=== PATIENT | male | born 1955 | race Two or more races ===

== ENCOUNTER 2018-10-25 05:45 | Inpatient (IN) | payer OTHER, MEDICAID ==
--- NOTE | 2018-10-24 17:24 | GHP ---
[f rep st] PREOP HISTORY AND PHYSICAL ADMISSION DIAGNOSIS: Adenocarcinoma of the prostate. HISTORY OF PRESENT ILLNESS: This is a 63-year-old gentleman whose primary care is Angelica Schilling DO, and he was sent originally because of elevated PSA of 7.9, and he had had a prostate biopsy that revealed [place] score 7 on 2018. He has had an MRI that showed no pelvic mets or bone mets in the pelvis, and it was a PI-RADS 5. Prostate volume was about 100 g on the ultrasound, and the MRI estimated his prostate size at 110 g. He has had a significant hypoechoic lesion on the left side of the prostate base-deleon, and he had an intravesical lobe of the prostate. Prostate length was right at 7 cm. At the present time, he was outlined the options of therapy and has elected to undergo robotic-assisted radical prostatectomy. Indications and complications discussed. Written and verbal consent have been obtained. He is admitted for the above procedure. PAST MEDICAL HISTORY: Diabetes, hypertension. PAST SURGERY: Cholecystectomy, back surgery. MEDICATIONS: Amlodipine, carvedilol, chlorthalidone, ibuprofen, glipizide, Levemir, simvastatin. ALLERGIES: None. FAMILY HISTORY: Positive for prostate cancer, diabetes and hypertension. SOCIAL HISTORY: Alcohol consumption: Mild. Never been a smoker. REVIEW OF SYSTEMS: Negative cardiac, respiratory, GI and endocrine. PHYSICAL EXAMINATION: VITAL SIGNS: Stable. CHEST: Clear. HEART: Regular rate and rhythm. ABDOMEN: Normal. No organomegaly, rebound or guarding. PROSTATE: Revealed a nodule in the left posterior part of the prostate, and it was enlarged on exam. At the present time, he is admitted for robotic-assisted radical prostatectomy, pelvic lymph node dissection. Indications, complications, options discussed. Written and verbal consent have been obtained. He is aware of the indications, risks, and complications. /[id number]/MODL MTDD
[2018-10-25] MEDS ORDERED: LR 1,000 ML IV ONE (06:06)
[2018-10-25] MEDS ORDERED: ceFAZolin 2 GM/DEXTROSE 100 ML IV ONE (06:47)
[2018-10-25] MEDS ORDERED: MIDAZOLAM 2 MG/2 ML VIAL IVP ONE (06:54)
[2018-10-25] MEDS ORDERED: PROPOFOL 200 MG/20 ML VIAL ONE (06:59)
[2018-10-25] MEDS ORDERED: ROCURONIUM 100 MG/10 ML VIAL ONE (06:59)
[2018-10-25] MEDS ORDERED: LIDOCAINE 2% 2 ML INJ ONE (06:59)
[2018-10-25] MEDS ORDERED: fentaNYL 250 MCG/5 ML INJ ONE (06:59)
[2018-10-25] MEDS ORDERED: ONDANSETRON 4 MG/2 ML VIAL ONE (06:59)
[2018-10-25] MEDS ORDERED: BUPIVACAINE 0.5% 30 ML SDV ONE (07:00)
--- NOTE | 2018-10-25 07:12 | PDANEPAE ---
ANE Past Medical History - Cardiovascular History Hx Hypertension: Yes Hx Arrhythmias: No Hx Chest Pain: No Hx Coronary Artery / Peripheral Vascular Disease: No Hx CHF / Valvular Disease: No Hx Palpitations: No Cardiovascular History Comment: CARDIAC STENT. about 10 yeas ago. No chest pain or SOB since. Good Exercise tolerancce (greater than 4 mets) - Pulmonary History Hx COPD: No Hx Asthma/Reactive Airway Disease: No Hx Recent Upper Respiratory Infection: No Hx Oxygen in Use at Home: No Hx Sleep Apnea: No Sleep Apnea Screening Result - Last Documented: Negative - Neurologic History Hx Cerebrovascular Accident: No Hx Seizures: No Hx Dementia: No - Endocrine History Hx Diabetes: Yes Endocrine History Comment: DM II - Renal History Hx Renal Disorders: No Renal History Comment: BPH - DIFFICULTY URINATING - Liver History Hx Hepatic Disorders: No - Neurological & Psychiatric Hx Hx Neurological and Psychiatric Disorders: No - Cancer History Hx Cancer: No - Congenital Disorder History Hx Congenital Disorders: No - GI History Hx Gastrointestinal Disorders: No Gastrointestinal History Comment: HEARTBURN OCCAS - Other Health History Other Health History: NEG - Chronic Pain History Chronic Pain: Yes (BACK PAIN) - Surgical History Prior Surgeries: BACK SURGERIES X2 L4L5. ANGIOGRAM W/STENT 5-6 YRS AGO. CHOLECYSTECTOMY ANE Review of Systems Review of Systems: - Exercise capacity METS (RN): 4 METS ANE Patient History - Allergies Allergies/Adverse Reactions: No Known Allergies Allergy (Unverified 10/17/18 15:24) - Home Medications Home Medications: Carvedilol 10/17/18 [Last Taken Unknown] Chlorthalidone 10/17/18 [Last Taken 10/24/18] Clopidogrel 10/17/18 [Last Taken 1 Week Ago ~10/18/18] Glimepiride 10/17/18 [Last Taken 10/24/18] Hydralazine HCl 10/17/18 [Last Taken 10/24/18] Ibuprofen 10/17/18 [Last Taken 1 Week Ago ~10/18/18] Januvia 25 MG (*) 10/17/18 [Last Taken 10/24/18] Novolin N 10/17/18 [Last Taken 10/24/18] Simvastatin 10/17/18 [Last Taken 10/24/18] - NPO status NPO Since - Liquids (Date): 10/24/18 NPO Since - Liquids (Time): 20:00 NPO Since - Solids (Date): 10/24/18 NPO Since - Solids (Time): 16:00 - Smoking Hx Smoking Status: Former smoker ANE Labs/Vital Signs - Vital Signs Blood Pressure: 174/104 Heart Rate: 73 Respiratory Rate: 18 O2 Sat (%): 95 Height: 170.18 cm Weight: 102.058 kg ANE Physical Exam - Airway Neck exam: FROM Mallampati Score: Class 3 Mouth exam: normal dental/mouth exam - Pulmonary Pulmonary: no respiratory distress, no rales or rhonchi, clear to auscultation - Cardiovascular Cardiovascular: regular rate and rhythym, no murmur, rub, or gallop - ASA Status ASA Status: III ANE Anesthesia Plan Anesthesia Plan: general endotracheal anesthesia
--- NOTE | 2018-10-25 07:15 | POSTANESTH ---
Post Anesthetic Evaluation Cardiovascular Status: Normal, Stable Respiratory Status: Normal, Stable Level of Consciousness/Mental Status: Can Participate in Eval Pain Control: Adequate, Prn Tx Ordered Nausea/Vomiting Control: Adequate, Prn Tx Ordered Complications Possibly Related to Anesthesia: None Noted
[2018-10-25] MEDS ORDERED: ROPIVACAINE HCL 150 MG/30 ML INJ ONE (07:59)
[2018-10-25] MEDS ORDERED: LR 500 ML IV PRN (08:09)
[2018-10-25] MEDS ORDERED: METOCLOPRAMIDE 10 MG/2 ML VIAL IVP PRN (08:09)
[2018-10-25] MEDS ORDERED: PROMETHAZINE HCL 25 MG/ML INJ IVP PRN (08:09)
[2018-10-25] MEDS ORDERED: ALBUTEROL 3 ML DEYVIAL IH PRN (08:09)
[2018-10-25] MEDS ORDERED: MEPERIDINE 25 MG/0.5 ML AMP IVP PRN (08:09)
[2018-10-25] MEDS ORDERED: PHENYLEPHRINE HCL 100 MCG/ML SYR IVP PRN (08:09)
[2018-10-25] MEDS ORDERED: ONDANSETRON 4 MG/2 ML VIAL IVP PRN ×2 (08:09→12:23)
[2018-10-25] MEDS ORDERED: NS 500 ML IV PRN (08:09)
[2018-10-25] MEDS ORDERED: ACETAMINOPHEN 500 MG TAB PO PRN (08:09)
[2018-10-25] MEDS ORDERED: NALOXONE HCL 0.4 MG/ML INJ IVP PRN (08:09)
[2018-10-25] MEDS ORDERED: oxyCODONE IR 5 MG TAB PO PRN (08:09)
[2018-10-25] MEDS ORDERED: fentaNYL 100 MCG/2 ML INJ IVP PRN (08:09)
[2018-10-25] MEDS ORDERED: fentaNYL 100 MCG/2 ML INJ ONE ×4 (08:14→14:43)
[2018-10-25] MEDS ORDERED: ROCURONIUM 50 MG/5 ML VIAL ONE ×2 (08:26→10:09)
[2018-10-25] MEDS ORDERED: THROMBIN(HUM PLAS)/FIBRINOG/CA 5 ML VIAL TP ONE (10:21)
[2018-10-25] MEDS ORDERED: SUGAMMADEX SODIUM 200 MG/2 ML VIAL IVP ONE (11:24)
[2018-10-25] MEDS ORDERED: METOCLOPRAMIDE 10 MG/2 ML VIAL ONE (11:37)
[2018-10-25] MEDS ORDERED: ONDANSETRON DISINTEGRATING 4 MG TAB PO PRN (12:23)
--- NOTE | 2018-10-25 12:25 | GOP ---
[f rep st] OPERATIVE REPORT DATE OF OPERATION: 10/25/2018 SURGEON: Dann Herzog MD SUPERVISOR TYPE DISK QUALITY CONTROL: Mary Jo Santos CFA. ANESTHESIOLOGIST: Vamshi Kent MD provided general anesthesia. PREOPERATIVE DIAGNOSIS: Prostate cancer. POSTOPERATIVE DIAGNOSIS: Prostate cancer. PROCEDURE PERFORMED: Robotic assisted radical prostatectomy and pelvic lymph node lymphadenectomy. FINDINGS: ESTIMATED BLOOD LOSS: Per Anesthesia. DESCRIPTION OF PROCEDURE: After undergoing general anesthesia, prepped and draped in normal sterile fashion, appropriate robotic position, appropriate time-out, the Veress needle was placed supraumbili holly for the camera port site and the patient was insufflated to 15 mmHg pressure CO2. Then at that point, placed the camera port supraumbilically and then placed three 8 mm ports, a 12 mm salon assistant p ort and the port line placement based on the SI diagraming. At that point, the patient was placed in approximately 20 degrees head down and after docking the robot was able to take down any of the colo allen adhesions into the pelvis and then brought the colon out of the pelvis and retracted with a ProGr asp. Then, I identified the vas deferens on the right and left sides and carried peritonotomy over t hose down as they coursed into the pelvis and then the rectum and the prostate sharply and hemostasis via electrocauterization bipolar. The ampulla and vas deferens were transected. Seminal vesicles dissected out. Hem-o-tiffany's were used to provide hemostasis to those operative sites. At th at point, took down the bladder after entering the space of Retzius and the obliterated umbilical art eries and the urachus was transected with bipolar and the pelvic fascia incised on the right and left sides. I did mobilize the bladder up to where the vas deferens were noted to cross over the vessels . At that point, the deep dorsal vein was ligated with two #1 Vicryls, I did take down the puboprost atic ligaments and then identified the bladder neck and defatted that. He had an abundance of fat in that area and then I identified the bladder neck and the anterior bladder neck was incised. He had a large amount of intravesical lobe of the prostate and was able to open the bladder neck and then gr asp the intravesical lobe and brought it up, and then identified each of the right and left ureters a nd made meticulous care not to occlude those or transect them, and developed a plane between the blad sue neck and the base of the prostate and went posterior to the bladder neck, brought the seminal ves icles and vas deferens anterior and then managed because of the large prostate and pelvis really had minimal room for working. I elected to use the tissue sealer device from the robot and was able to m anage the right and left sides of the bundles. I did try to stay right on the prostate for sealing o f those vessels, and then at that point went anterior to the bladder at the bladder neck and transect ed the urethra and delivered the specimen out of the pelvis. Hemostasis was noted and there was no b leeding after deflating the intraabdominal pressure, and the rectum was intact with no suggestion of injury of that. At that point, had a patulous bladder neck that was closed to the right and left gretel es with a 3-0 Vicryl [id number] stitch and then at that point used 3-0 Monocryl to approximate f or a Chencho stitch, and then did the anastomosis with a running stitch. He was bridged with a 20-Fren ch catheter and it irrigated clear. There was no leak. Used biologic sealant and hemostatic agent f or the pelvis at the anastomotic site. At that point, the right and left pelvic lymph nodes were dis sected out using the bifurcation iliac vein and the obturator nerve and the depth and dissected that out. Hemostasis via electrocautery and with Hem-o-loks. The specimen sent separate. At that point t he prostate was bagged in the specimen bag and drain was placed in the pelvis, brought out through 1 of the 8 mm camera port sites and then the salon assistant port was closed with a fascial closure device. We did a jcmhl-ar-yume incision on the camera port, so I could deliver the prostate which did measure approximately 100+ g preoperatively. At that point, the fascia was approximated with a running 0 Vi cryl. Subcutaneous tissue hemostatic, intradermal 4-0 Monocryl was used to close all the operative p ort sites. Estimated blood loss per Anesthesia. Specimens sent to Pathology. Complications none. The patient will be admitted postop for pain control. Anesthesia will have him undergo a TAPS for local anesthet ic. It should be said that at the end of the procedure, there appeared to be no residual prostatic t issue at the apex or at the bladder neck grossly, and it appeared that there was no gross involvement of the lymph nodes. I should also say that I had to put a 5 mm port in just below the xiphoid, so I could use a grasper to pull the bladder out of the pelvis and improve exposure because the bladder k ept falling into that space to occlude vision and there was once again no bleeding noted postoperativ destiny in any of the operative port sites. COMPLICATIONS: None. /[id number]/MODL
--- NOTE | 2018-10-25 12:29 | POSTOPPROG ---
Post Op Note Date of Operation: 10/25/18 (dictated) Surgeon: Dann Herzog Blower Operator: Tom Anesthesiologist: Jareth Anesthesia: GET(General Endotracheal), Other (Specify) (TAPS) Pre-op Diagnosis: prostate cancer Procedure: RA-RRP and PLND Inf/Abcess present in the surg proc area at time of surgery?: No EBL: 50-100 Drains: Eric Sanchez, Other (snow) Specimen(s): prostate, LN, SV
[2018-10-25] MEDS ORDERED: HYDROmorphONE/DILAUDID 1 MG/ML INJ ONE ×2 (12:37→14:43)
[2018-10-25] MEDS: HYDROmorphONE/DILAUDID 1 MG/ML INJ IVP PRN ×4 (12:43→14:47)
[2018-10-25] MEDS ORDERED: INSULIN REGULAR HUMAN 100 UNIT/ML UNIT ONE ×3 (12:52→14:06)
[2018-10-25] MEDS ORDERED: INSULIN REGULAR HUMAN 100 UNIT/ML UNIT IV ONE (13:15)
[2018-10-25] MEDS ORDERED: ACETAMINOPHEN 325 MG TAB ONE (13:44)
[2018-10-25] MEDS ORDERED: oxyCODONE IR 5 MG TAB ONE (13:44)
[2018-10-25] MEDS: ACETAMINOPHEN 325 MG TAB PO SCH ×3 (13:45→21:32)
[2018-10-25] MEDS ORDERED: D50W 25 GM/50 ML SYR IVP PRN (14:26)
--- NOTE | 2018-10-25 14:32 | PDHOSCONS ---
History and Physical - Chief Complaint medical mgmt - History of Present Illness This is a 63 yo male with prostate cancer who had radical prostatectomy today by Dr. Herzog. He has MMP and we have been consulted to manage these. He has a hx of DMII and he currently has Hyperglycemia. He received Insulin earlier. He also has a hx of HTN. BP is appropriate currently. He denies CP, SOB, n/v/d, focal weakness PMHx: HTN, HLD, DMII, prostate cancer PSHx: cholecystectomy, back surgery, prostatectomy (today) SocHx: non smoker, + ETOH use FmHx: non contributory Labs: recent labs from early October reviewed Meds: home med list is being compiled, not available at this time. Previous meds reviewed History Information - Allergies/Home Medication List Allergies/Adverse Reactions: No Known Allergies Allergy (Unverified 10/17/18 15:24) Home Medications: Carvedilol [Coreg (*)] 25 mg PO BIDMEAL 10/17/18 [Last Taken 10/24/18] Chlorthalidone [Chlorthalidone 25 mg (*)] 25 mg PO DAILY 10/17/18 [Last Taken ] Clopidogrel Bisulfate [Clopidogrel] 75 mg PO DAILY 10/17/18 [Last Taken 1 Week Ago ~10/18/18] Glimepiride 4 mg PO DAILY 10/17/18 [Last Taken 10/24/18] Simvastatin 40 mg PO HS 10/17/18 [Last Taken 10/24/18] sitaGLIPtin PHOSPHATE [Januvia 100 MG (*)] 100 mg PO DAILY 10/17/18 [Last Taken 10/24/18] Insulin NPH Human Isophane [Novolin N] 25 unit SQ BID 10/25/18 [Last Taken 10/24] I have personally reviewed and updated: medical history, social history - Social History Smoking Status: Former smoker Review of Systems Review of Systems: ROS: 10pt was reviewed & negative except for what was stated in HPI & below Physical Exam Physical Exam: Temp Pulse Resp BP Pulse Ox 36.8 C 73 13 131/83 H 90 L 10/25/18 12:24 10/25/18 07:14 10/25/18 13:16 10/25/18 13:16 10/25/18 13:16 O2 (L/minute) 4 Constitutional: no apparent distress Eyes: PERRL, EOMI Ears, Nose, Mouth, Throat: moist mucous membranes, hearing normal Cardiovascular: regular rate and rhythym Respiratory: no respiratory distress, no rales or rhonchi, clear to auscultation Gastrointestinal: normoactive bowel sounds, soft, non-tender abdomen Skin: warm Neurologic: AAOx3 Psychiatric: interacting appropriately, not anxious, not encephalopathic Lymph, Heme, Immunologic: No petechiae Lab Data & Imaging Review POC Glucose 359 mg/dL (70-100) H 10/25/18 12:34 Assessment & Plan Assessment: #s/p Radical Prostatectomy #Adenocarcinoma of prostate #HTN #DMII with Hyperglycemia #HLD Plan: post op care per surgery Pain mgmt diet per surgery BP mgmt Glucose optimization, ISS start home meds as appropriate. Hold Plavix for now SCD's. Mechanical DVT proph once felt appropriate thank you for this consult, we will follow along
--- NOTE | 2018-10-25 15:39 | ASMTCMCOM ---
CM Note CM Note Notes: Patient admitted for RA radical prostatectomy and pelvic lymph node dissection. Hospital medicine following for mgmt of Diabetes and HTN. Patient is normally independent, lives with . I don't anticipate any d/c needs but Case Management is available should they arise. Date Signed: 10/25/2018 03:38 PM Electronically Signed By:Bibiana Nixon RN
--- NOTE | 2018-10-25 15:58 | PDMN ---
Medical Necessity Medical necessity: Pt meets inpt criteria per MD order and [facility] [place], [place] [id number], Prostatectomy, Radical, 1 day post-op, 63 y/o w/mult medical issues including prostate ca admitted for radical prostatectomy and lymph node dissection and post-op care, hospital medicine also following. Other PMH includes DM 2, HTN, CAD w/stent 5-6 yrs ago. Prior inpt auth obtained.
[2018-10-25] MEDS: INSULIN LISPRO 100 UNIT/ML SC SCH (16:14)
[2018-10-25] MEDS: oxyCODONE IR 5 MG TAB PO PRN ×2 (16:15→23:20)
[2018-10-25] MEDS: CARVEDILOL 25 MG TAB PO SCH (18:33)
[2018-10-25] MEDS: ATORVASTATIN CALCIUM 20 MG TAB PO SCH (19:57)
[2018-10-25] MEDS ORDERED: INSULIN NPH HUMAN 100 UNITS/ML SYR SC SCH (21:00)
[2018-10-25] MEDS: INSULIN NPH HUMAN 100 UNITS/ML SYR SC SCH (21:32)
[2018-10-25] MEDS ORDERED: CALCIUM CARBONATE 500 MG CHEWABLE TAB PO PRN (22:09)
[2018-10-26] MEDS: ACETAMINOPHEN 325 MG TAB PO SCH ×6 (02:21→20:54)
[2018-10-26 04:40] LABS: PLATELET COUNT 171 10^3/uL (150-400)
--- NOTE | 2018-10-26 06:58 | SOAPPROG ---
SOAP Progress Note Assessment/Plan: Assessment: Adenocarcinoma of prostate, stage 2 Acute POD#1, doing well, appreciate hospitalist management of medical conditions Plan: care today and consider DC this PM or in AM 10/26/18 06:56 Subjective: minimal pain Objective: Vital Signs Temp Pulse Resp BP Pulse Ox 36.6 C 58 L 18 124/73 H 95 10/26/18 05:34 10/26/18 05:34 10/26/18 05:34 10/26/18 05:34 10/26/18 05:34 Laboratory Results 10/26/18 04:24 10/26/18 04:24 10/25/18 10/26/18 10/27/18 05:59 05:59 05:59 Intake Total 1989 Output Total 7907 Balance -2360 ICD10 Worksheet Patient Problems: Problems Problem Status Onset Adenocarcinoma of prostate, stage 2 Acute
[2018-10-26] MEDS: INSULIN LISPRO 100 UNIT/ML SC SCH ×3 (09:35→17:36)
[2018-10-26] MEDS: CHLORTHALIDONE 25 MG TAB PO SCH (09:35)
[2018-10-26] MEDS: INSULIN NPH HUMAN 100 UNITS/ML SYR SC SCH ×2 (09:35→21:33)
[2018-10-26] MEDS: CARVEDILOL 25 MG TAB PO SCH ×2 (09:36→17:37)
--- NOTE | 2018-10-26 12:43 | SOAPPROG ---
SOAP Progress Note Assessment/Plan: Assessment: post op prostatectomy Plan: Patient is to ambulate and consider d/c tomorrow 10/26/18 12:42 Subjective: pain is 4/10. has not walked Objective: Vital Signs Temp Pulse Resp BP Pulse Ox 37.0 C 66 18 120/71 96 10/26/18 11:41 10/26/18 11:41 10/26/18 11:41 10/26/18 11:41 10/26/18 11:41 Laboratory Results 10/26/18 04:24 10/26/18 04:24 10/25/18 10/26/18 10/27/18 05:59 05:59 05:59 Intake Total 1989 Output Total 4350 Balance -2360 Physical Exam - Physical Exam General Appearance: alert, no apparent distress Respiratory: normal breath sounds Abdomen: distended (mildly distended but not rigid. dharmesh in place), No non-tender Male Genitalia: other (snow in place) ICD10 Worksheet Patient Problems: Problems Problem Status Onset Adenocarcinoma of prostate, stage 2 Acute
--- NOTE | 2018-10-26 12:53 | ASMTCMCOM ---
CM Note CM Note Notes: CM reviewed chart and discussed pt in interdisciplinary rounds. Pt had radical prostatectomy with lymph node dissection yesterday. Hospitalist will continue to monitor today and discharge by tomorrow morning. CM D/C plan: Independent to home. Date Signed: 10/26/2018 12:53 PM Electronically Signed By:Malu Lopez
--- NOTE | 2018-10-26 15:56 | HOSPPROG ---
Hospitalist Progress Note Assessment/Plan: #s/p Radical Prostatectomy #Adenocarcinoma of prostate #HTN #DMII with Hyperglycemia #HLD Plan: post op care per surgery Pain mgmt diet per surgery BP mgmt Glucose optimization, ISS start home meds as appropriate. Hold Plavix for now SCD's. Mechanical DVT proph once felt appropriate thank you for this consult, we will follow along Subjective: doing well post op. pain controlled. no complaints. Objective: Vital Signs Temp Pulse Resp BP Pulse Ox 37.0 C 66 18 120/71 96 10/26/18 11:41 10/26/18 11:41 10/26/18 11:41 10/26/18 11:41 10/26/18 11:41 Laboratory Results 10/26/18 04:24 10/26/18 04:24 10/25/18 10/26/18 10/27/18 05:59 05:59 05:59 Intake Total 1989 Output Total 4350 Balance -2360 - Physical Exam Constitutional: no apparent distress, appears nourished, not in pain Eyes: PERRL, anicteric sclera, EOMI Ears, Nose, Mouth, Throat: moist mucous membranes, hearing normal, ears appear normal, no oral mucosal ulcers Cardiovascular: regular rate and rhythym, no murmur, rub, or gallop Respiratory: no respiratory distress, no rales or rhonchi, clear to auscultation Gastrointestinal: normoactive bowel sounds, soft, non-tender abdomen, no palpable masses Genitourinary: no bladder fullness, no bladder tenderness, no renal bruits Skin: no rashes or abrasions, no fluctuance, no induration Musculoskeletal: full muscle strength, no muscle tenderness, normal joint ROM Neurologic: AAOx3, sensation intact bilaterally Psychiatric: interacting appropriately, not anxious, not encephalopathic, thought process linear Lymph, Heme, Immunologic: no cervical LAD, no supraclavicular LAD ICD10 Worksheet Patient Problems: Problems Problem Status Onset Adenocarcinoma of prostate, stage 2 Acute
[2018-10-26] MEDS: ATORVASTATIN CALCIUM 20 MG TAB PO SCH (20:54)
[2018-10-26] MEDS: oxyCODONE IR 5 MG TAB PO PRN (23:01)
[2018-10-27] MEDS: ACETAMINOPHEN 325 MG TAB PO SCH ×3 (02:12→11:43)
[2018-10-27] MEDS: oxyCODONE IR 5 MG TAB PO PRN (05:11)
[2018-10-27] MEDS: CARVEDILOL 25 MG TAB PO SCH (08:37)
[2018-10-27] MEDS: CHLORTHALIDONE 25 MG TAB PO SCH (08:37)
[2018-10-27] MEDS: INSULIN NPH HUMAN 100 UNITS/ML SYR SC SCH (08:58)
[2018-10-27] MEDS: INSULIN LISPRO 100 UNIT/ML SC SCH (10:39)
[2018-10-27 11:22] VITALS: BP 117/65
--- NOTE | 2018-10-27 11:28 | ASDISCHSUM ---
Discharge Information Plan Status:Home with No Needs Medically Cleared to Leave:10/27/2018 Discharge Date:10/27/2018 CM D/C Disposition:Home, Routine, Self-Care ADT D/C Disposition:Home, Routine, Self-Care Projected Discharge Date:10/27/2018 Transportation at D/C:Family Discharge Delay Reason: Follow-Up Date:10/27/2018 Discharge Slot: Final Diagnosis: Placement Information Patient Contact Information Contact Name:REHANA Relationship: Address:[address] Work Phone: City:[facility] Phone: State/Zip Code:[place] [address] Email: Financial Information Financial Class:Medicare Advantage Plans Primary Plan Desc:[facility] [place] Primary Plan Number:[id number] Secondary Plan Desc:[employer] [place] Secondary Plan Number:[id number] Assessment Information [facility] CM Progress Note CM Note CM Note Notes: Patient admitted for RA radical prostatectomy and pelvic lymph node dissection. Hospital medicine following for mgmt of Diabetes and HTN. Patient is normally independent, lives with . I don't anticipate any d/c needs but Case Management is available should they arise. Date Signed: 10/25/2018 03:38 PM Electronically Signed By:Bibiana Nixon RN [facility] CM Progress Note CM Note CM Note Notes: CM reviewed chart and discussed pt in interdisciplinary rounds. Pt had radical prostatectomy with lymph node dissection yesterday. Hospitalist will continue to monitor today and discharge by tomorrow morning. CM D/C plan: Independent to home. Date Signed: 10/26/2018 12:53 PM Electronically Signed By:Malu Lopez Intervention Information
--- NOTE | 2018-10-27 11:29 | ASMTDCNOTE ---
Case Management Discharge Discharge Order Complete? Answers: Yes Patient to Obtain Answers: via Family Medications Transportation Arranged Answers: Family/Friends Discharge Comments Notes: Pt is being discharged independently. Pt will arrange outpatient follow-up. No CM needs identified. Pt is being discharged independently. Family to transport. Date Signed: 10/27/2018 11:28 AM Electronically Signed By:URSSELL Hdez
--- NOTE | 2018-10-27 11:30 | ASMTLACE ---
LACE Length of stay for Answers: 2 days current admission Acuity / Level of Answers: Yes Care: Did the patient have an inpatient admission? Comorbidities - select Answers: Any tumor (including all that apply lymphoma or leukemia) Diabetes (uncontrolled or controlled) Other Notes: HTN # of Emergency department Answers: 0 visits in the last 6 months Score: 9 Date Signed: 10/27/2018 11:29 AM Electronically Signed By:RUSSELL Hdez
--- NOTE | 2018-10-27 14:38 | HOSPPROG ---
Hospitalist Progress Note Assessment/Plan: #s/p Radical Prostatectomy #Adenocarcinoma of prostate #HTN #DMII with Hyperglycemia #HLD Plan: post op care per surgery Pain mgmt diet per surgery BP mgmt Glucose optimization, ISS start home meds as appropriate. Hold Plavix for now SCD's. Mechanical DVT proph once felt appropriate thank you for this consult, we will follow along Subjective: doing better today, some soreness. no bm but passing gas, urinating without issue. Objective: Vital Signs Temp Pulse Resp BP Pulse Ox 37.0 C 73 16 117/65 86 L 10/27/18 11:21 10/27/18 07:37 10/27/18 11:21 10/27/18 11:21 10/27/18 11:21 Laboratory Results 10/26/18 04:24 10/26/18 04:24 10/26/18 10/27/18 10/28/18 05:59 05:59 05:59 Intake Total 1989 Output Total 4350 1290 20 Balance -2360 -1290 -20 - Physical Exam Constitutional: no apparent distress, appears nourished, not in pain Eyes: PERRL, anicteric sclera, EOMI Ears, Nose, Mouth, Throat: moist mucous membranes, hearing normal, ears appear normal, no oral mucosal ulcers Cardiovascular: regular rate and rhythym, no murmur, rub, or gallop Respiratory: no respiratory distress, no rales or rhonchi, clear to auscultation Gastrointestinal: normoactive bowel sounds, soft, non-tender abdomen, no palpable masses Genitourinary: no bladder fullness, no bladder tenderness, no renal bruits Skin: no rashes or abrasions, no fluctuance, no induration Musculoskeletal: full muscle strength, no muscle tenderness, normal joint ROM Neurologic: AAOx3, sensation intact bilaterally Psychiatric: interacting appropriately, not anxious, not encephalopathic, thought process linear Lymph, Heme, Immunologic: no cervical LAD, no supraclavicular LAD ICD10 Worksheet Patient Problems: Problems Problem Status Onset Adenocarcinoma of prostate, stage 2 Acute
== END 2018-10-27 12:50 | disposition home or self-care (01) | DRG 708 ==
LOC: F3E 05:45 → F1N 07:47
PROVIDERS: ADMIT Specialist; ATTEND Specialist
DX: C61 Malignant neoplasm of prostate (principal); E11.65 Type 2 diabetes mellitus with hyperglycemia; I10 Essential (primary) hypertension; E78.5 Hyperlipidemia, unspecified; Z87.891 Personal history of nicotine dependence; I25.10 Atherosclerotic heart disease of native coronary artery without angina pectoris; Z95.5 Presence of coronary angioplasty implant and graft; Z79.02 Long term (current) use of antithrombotics/antiplatelets
CPT/HCPCS: J0690; J1170; J1815; J2250; J2405; J2704; J2765; J2795; J3010